=== PATIENT | female | born 1960 | race Caucasian/White ===

== ENCOUNTER 2016-12-20 22:15 | Emergency (ER) | payer BC ==
[~2016-12-20] VITALS: Ht 154.9 cm; Wt 115.7 kg
[~2016-12-20 22:15] MED LIST: ACET-1256 PO; CALC500C70 PO; CYAN3INJ IM; FLUO20CA35 PO; IRON PO; MULT-506 PO; OMEP20CA59 PO; POTASSIUM PO
[2016-12-20 22:33] VITALS: Ht 154.9 cm; Wt 115.7 kg
--- NOTE | 2016-12-20 22:43 | EMERGENCY ROOM VISIT NOTE ---
History Report prepared by Jhonatan: Chris Rodriguez Under the Supervision of: Dr. Quentin Arevalo D.O. First contact with patient: 22:36 Chief Complaint: LACERATION/CUT (SUT/DERMABOND) Stated Complaint: CUT TIP OF INDEX FINGER LEFT HAND Nursing Triage Summary: Patient has a small laceration to the pad of her left index finger; patient sliced it on a piece of metal. History of Present Illness The patient is a 56 year old female who presents to the Emergency Room with complaints of a laceration to her left index finger occurring this evening. She notes she was looking for a lid in a cabinet and cut her finger. She did not lose consciousness. She does not believe her tetanus is UTD. The patient reports a history of gastric bypass, acid reflux, and kidney stone removal. Source of History: patient Onset: this evening Position: finger(s) (left index) Quality: other (laceration) Timing: other (episode) Associated Symptoms: No LOC Review of Systems See HPI for pertinent positives & negatives. A total of 6 systems reviewed and were otherwise negative. Past Medical & Surgical Medical Problems: (1) Kidney stone (2) Osteoarthritis Surgical Problems: (1) H/O gastric bypass Family History No pertinent family history stated. Social History Smoking Status: Never Smoker Marital Status: single Occupation Status: employed Current/Historical Medications Scheduled Acetaminophen (Tylenol), 1,000 MG PO QAM Calcium/Vitamin D (Os-Abdiel 500 Plus D), 1 TAB PO QAM Cyanocobalamin (Vitamin B-12 Inj), 1 ML IM [id number] Fluoxetine (Prozac), 20 MG PO QAM Multivitamin (Multivitamin), 1 TAB PO QAM Omeprazole (Prilosec), 40 MG PO QAM [Iron], 65 MG PO QAM [Potassium], 595 MG PO QAM Allergies Coded Allergies: Amoxicillin (Verified Allergy, Intermediate, RASH, 12/20/16) Tetracycline (Verified Allergy, Intermediate, RASH, 12/20/16) Adhesives (Verified Allergy, Mild, RASH, 12/20/16) Physical Exam Vital Signs Date Time Temp Pulse Resp B/P Pulse Ox O2 Delivery O2 Flow Rate FiO2 12/20/16 23:02 36.6 66 20 145/91 98 12/20/16 22:33 36.6 66 20 145/91 98 Room Air Physical Exam GENERAL: Patient is awake alert in no acute distress patient is resting comfortably and showing no signs of anxiety EYES: The conjunctivae are clear. The pupils are round and reactive. EARS, NOSE, MOUTH AND THROAT: The nose is without any evidence of any deformity. Mucous membranes are moist tongue is midline NECK: The neck is nontender and supple. RESPIRATORY: Normal respiratory effort is noted there is no evidence of wheezing rhonchi or rales CARDIOVASCULAR: Regular rate and rhythm noted there no murmurs rubs or gallops normal S1 normal S2 GASTROINTESTINAL: The abdomen is soft. Bowel sounds are present in all quadrants. Abdomen is nontender MUSCULOSKELETAL/EXTREMITIES: There is no evidence of gross deformity full range of motion is noted in the hips and shoulders SKIN: 1 cm laceration over the pad of his left index finger. Minimally bleeding noted. NEUROLOGIC: Patient is awake alert and oriented x3. Medical Decision & Procedures Medications Administered Medications (Trade) Dose Ordered Sig/Omayra Route Start Time Stop Time Status Last Admin Dose Admin Diphtheria/ Pertussis/Tetanus Vacc (Adacel Inj) 0.5 ml ONCE ONCE IM. 12/20/16 22:45 12/20/16 22:46 DC 12/20/16 22:45 0.5 ML Procedure Location: Left index finger Total length: 1 cm Complexity: Low Verbal consent was obtained after the risks and benefits were explained, including but not limited to bleeding, scarring, infection, pain, and bone/joint /nerve damage. At this time, the risks of the procedure are less than the risks of NOT performing the procedure. A time out was taken and the correct patient and site identified. The skin was prepped with betadine. The target area was anesthetized with 0.5 ml of 1% lidocaine without epinephrine. Copious irrigation was performed using normal saline solutio and Betadine . The skin was re-prepped with betadine and a sterile field set. The wound was explored for foreign bodies and none found. Examination revealed no injury to deep structures such as tendons, bone, or significant blood vessels. Debridement was not performed. The wound edges were approximated using 2 simple interrupted sutures of 5-0 nylon sutures. Hemostasis and excellent approximation was achieved. Antibacterial ointment and a sterile dressing applied. Detailed wound care instructions and signs and symptoms of infection reviewed with the patient. No complications and the patient tolerated the procedure well. ED Course 2237: The patient was evaluated in room C12B. A complete history and physical examination were performed. 2244: Ordered Adacel Inj 0.5 ml IM. 2254: Upon reevaluation, the patient is doing well. I discussed the results and treatment plan with the patient. She verbalized agreement of the treatment plan. The patient was discharged home. Medical Decision Nursing notes reviewed. The patient is a 56-year-old female who presented to the emergency department with a laceration to the tip of her left index finger. Laceration was deep but there is no active bleeding. The area was anesthetized using lidocaine. She had 2 simple her opted sutures which approximated the wound nicely. She was encouraged to have the wound rechecked again in a couple of days but also have sutures removed in 7 days. She was also encouraged to return to the emergency Department immediately if any signs of infection develop or the need arises. Otherwise she was encouraged to follow-up with her primary care physician. Impression Primary Impression: Laceration of left index finger Scribe Attestation The scribe's documentation has been prepared under my direction and personally reviewed by me in its entirety. I confirm that the note above accurately reflects all work, treatment, procedures, and medical decision making performed by me. Departure Information Dispostion Home / Self-Care Referrals Iqar Vila D.O. (PCP) Patient Instructions ED Laceration All, My [facility] Additional Instructions Continue to cover the laceration with triple antibiotic ointment and Band-Aids. Follow-up with your family doctor in 7 days for suture removal. Continue using Motrin and Tylenol as directed for pain. Return to emergency department immediately if symptoms worsen or if need arises.
[2016-12-20] MEDS ORDERED: DIPHTHERIA/TETANUS/PERTUSSIS 0.5 ML SYR/VIAL IM. ONE (22:45)
[2016-12-20] MEDS ORDERED: XYLOCAINE 1%/SOD BICARB 20 ML VIAL INFIL ONE (22:45)
[2016-12-20 23:02] VITALS: BP 145/91; PULSE 66; TEMP 36.6; O2SAT 98
== END 2016-12-20 23:03 | disposition home or self-care (01) ==
LOC: C.EDB 22:17 → C.EDC 23:03
DX: S61.211A Laceration without foreign body of left index finger without damage to nail, initial encounter (principal); W45.8XXA Other foreign body or object entering through skin, initial encounter; Z98.84 Bariatric surgery status; K21.9 Gastro-esophageal reflux disease without esophagitis; Z87.442 Personal history of urinary calculi; M19.90 Unspecified osteoarthritis, unspecified site; Z79.899 Other long term (current) drug therapy; Z23 Encounter for immunization